=== PATIENT | male | born 1960 | race Caucasian/White ===

== ENCOUNTER → 2021-04-26 | Outpatient (CLI) | payer OTHER ==
[~2021-04-26] MED LIST: IOHEXOL 240 MG/ML 50ML VIAL. PO ONE; IOHEXOL 300 MG/ML 100ML VIAL. IV ONE
--- NOTE | 2021-04-26 12:44 | RAD ---
EXAMINATION: CT ABDOMEN+PELVIS W CLINICAL HISTORY: Umbilical hernia TECHNIQUE: CT of the abdomen and pelvis was performed using standard technique, scanning from just ab ove the dome of the diaphragm to the symphysis pubis following administration of intravenous contrast . CT Dose Reduction Employed: One or more of the following individualized dose reduction techniques wer e utilized for this examination: 1. Automated exposure control 2. Adjustment of the mA and/or kV ac cording to patient size 3. Use of iterative reconstruction technique. COMPARISON: None FINDINGS: Minimal bibasilar subsegmental atelectasis and/or scarring. Liver, gallbladder, pancreas, spleen, and adrenal glands unremarkable. Subcentimeter hypoenhancing foci in the bilateral kidneys, too small adequately characterize. Minimally distended urinary bladder suboptimally evaluated. Nonenlarged prostate. Diverticulosis with questionable wall thickening and mild pericolonic stranding in the minimally dist ended sigmoid colon, cannot exclude mild diverticulitis. Suspected enteroenteric intussusception in t he right upper quadrant, best appreciated is on sagittal and coronal sequences (ex. series 5 images 3 7-41). No evidence of bowel obstruction. Appendix not definitively visualized. Mild arterial atherosclerotic calcification without aneurysm. No umbilical or other ventral hernia. No inguinal hernia. No evidence of acute osseous abnormality. IMPRESSION: Possible mild sigmoid diverticulitis as described, correlate clinically. Suspected enteroenteric intussusception in the right upper quadrant incidentally noted. No umbilical hernia. Electronically signed by: Morales Gutierrez DO (04/26/2021 12:42 PM) [id number]
== END ==
LOC: CT 10:38
PROVIDERS: ATTEND Surgery
DX: K57.30 Diverticulosis of large intestine without perforation or abscess without bleeding (principal); I70.90 Unspecified atherosclerosis
CPT/HCPCS: 74177; Q9966; Q9967